=== PATIENT | female | born 1960 | race Two or more races ===

== ENCOUNTER 2017-03-04 00:04 | Emergency (ER) | payer SELFPAY ==
[~2017-03-04] VITALS: Ht 154.9 cm; Wt 57.0 kg
[2017-03-04] MEDS ORDERED: ONDANSETRON HCL 4MG/2ML VIAL IV STA (08:18)
[2017-03-04] MEDS ORDERED: FAMOTIDINE 20MG/2ML VIAL IV STA (08:18)
[2017-03-04] MEDS ORDERED: SODIUM CHLORIDE 0.9% 500 ML IV ONE (08:18)
[2017-03-04] MEDS ORDERED: MAGNESIUM/ALUMINUM HYDROXIDE/SIMETHICONE 30ML UDC PO STA (08:18)
[2017-03-04 08:40] LABS: HEMATOCRIT. 40.8 % (36.0-48.0); HEMOGLOBIN. 13.7 g/dL (12.0-16.0); MEAN CORPUSCULAR HEMOGLOBIN 30.5 pg (28.0-32.0); MEAN CORPUSCULAR VOLUME 90.5 fL (81.0-99.0); MEAN PLATELET VOLUME 7.7 fl (7.4-10.4); PLATELET 291 x1000/uL (130-400); RED CELL DISTRIBUTION WIDTH 13.4 % (11.6-14.6)
[2017-03-04 08:55] LABS: CARBON DIOXIDE 24 mEq/L (21-32); CHLORIDE 101 mEq/L (98-107)
[2017-03-04 08:58] LABS: CLARITY URINE CLOUDY (CLEAR); COLOR URINE DARK YELLOW (YELLOW); KETONES URINE NEGATIVE (NEGATIVE); LEUKOCYTE ESTERASE URINE NEGATIVE (NEGATIVE); NITRITE URINE NEGATIVE (NEGATIVE); OCCULT BLOOD URINE NEGATIVE (NEGATIVE); PH URINE 5.5 (4.5-8.0); PROTEIN URINE 1+ (NEGATIVE); UROBILINOGEN URINE 0.2 E.U./dL (0.2-1.0)
[2017-03-04 09:16] VITALS: BP 130/80
[2017-03-04 09:42] LABS: PLATELET ESTIMATE NORMAL
== END 2017-03-04 10:41 | disposition home or self-care (01) ==
LOC: ER 00:04
DX: R10.13 Epigastric pain (principal); R11.2 Nausea with vomiting, unspecified; R19.7 Diarrhea, unspecified
CPT/HCPCS: 36415; 80053; 81001; 83690; 85025; 96374; 96375; 99284; J2405; J3490; J7030